=== PATIENT | male | born 1990 | race Hispanic/Latino ===

== ENCOUNTER 2020-06-06 23:05 | Emergency (ER) | payer SELFPAY ==
[2020-06-06 23:22] LABS: #Basophils 0.1 thou/uL (0.0-0.2); #Monocytes 0.6 thou/uL (0.11-0.59); #Neutrophils 12.2 thou/uL (1.40-6.50); %Basophils 0.7 % (0.0-1.0); %Eosinophils 0.1 % (0.0-10.0); %Lymphocytes 13.2 % (21.0-51.0); %Monocytes 3.9 % (0.0-10.0); %Neutrophils 82.1 % (42.0-75.0); Hemoglobin 16.3 g/dL (14.0-18.0); Mean Corpuscular HGB CONC 33.9 g/dL (32.0-36.0); Mean Corpuscular Hemoglobin 31.1 pg (27.0-31.0); Mean Corpuscular Volume 91.6 fL (78.0-98.0); Mean Platelet Volume 8.8 fL (7.4-10.4); Platelet Count 291 thou/uL (130-400); RBC Distribution Width 11.1 % (11.5-14.5); Red Blood Cell (RBC) Count 5.25 mill/uL (4.70-6.10); White Blood Cell (WBC) Count 14.8 thou/uL (4.8-10.8)
--- NOTE | 2020-06-06 23:28 | CT ---
CT of thehead: 06/06/2020 COMPARISON:None available HISTORY:Trauma TECHNIQUE: Serial axial CT imaging at5 mm intervals from vertex through skull base without contrast. Coronal and sagittal reformatted imaging obtained. Findings:Mild mucosal thickening of the alveolar recess left maxillary sinus. No displaced calvarial fracture. No intracranial hemorrhage, midline shift, mass effect, or ventricular enlargement. There is a lesion of CSF density within the middle cranial fossa on the right anterior to the right t emporal lobe measuring 2.7 cm, likely representing an arachnoid cyst. This could be confirmed with a follow-up brain MRI. Impression:No intracranial hemorrhage or displaced calvarial fracture. Findings suggesting a right mi ddle cranial fossa arachnoid cyst. Nonemergent brain MRI suggested.
[2020-06-06 23:38] LABS: AST (SGOT) 21 U/L (5-34); Alcohol 133 mg/dL (Less than 10); Anion Gap 22 mmol/L (10-20); Calc. Creatinine Clearance 0 mL/min (70-130); Estimated GFR-MDRD Greater than 90; Globulin 3.2 g/dL (2.4-3.5); Potassium 3.7 mmol/L (3.5-5.1)
--- NOTE | 2020-06-06 23:38 | CT ---
CT of thecervical spine: 06/06/2020 COMPARISON:None available HISTORY:Trauma, pain TECHNIQUE: Serial axial CT imaging at2.5 mm intervals from theskull base through lung apices without contrast. Coronal and sagittal reformatted imaging obtained Findings:Imaged lung apices are unremarkable. The occipital condyles, the dens, the C1-2 articulation, the craniocervical junction, the atlantoaxia l interspace, and the cervicothoracic junction appear intact. No prevertebral soft tissue swelling. No anterolisthesis or retrolisthesis. Mild disc space narrowing at C4-5. No displaced fracture or dis location. Impression:No acute osseous abnormality.
--- NOTE | 2020-06-06 23:38 | RAD ---
2 view chest: [06/06/2020] Comparison:None available HISTORY: Injury FINDINGS: Heart and mediastinal contours are grossly unremarkable. No pneumothorax or pleural fluid. No focal consolidation or alveolar edema. IMPRESSION: No acute findings.
[2020-06-06 23:44] LABS: ALT (SGPT) 15 U/L (8-55); Albumin 4.2 g/dL (3.5-5.0); Alkaline Phosphatase 84 U/L (40-110); BUN (Urea Nitrogen) 8 mg/dL (8.9-20.6); Bilirubin, Total 0.3 mg/dL (0.2-1.2); Calcium 7.3 mg/dL (7.8-10.44); Carbon Dioxide 18 mmol/L (22-29); Chloride 103 mmol/L (98-107); Glucose 81 mg/dL (70-105); Protein, Total 7.4 g/dL (6.0-8.3); Sodium 139 mmol/L (136-145)
--- NOTE | 2020-06-06 23:54 | CT ---
CT facial bones: 06/06/2020 COMPARISON: None HISTORY: Trauma TECHNIQUE: Axial CT imaging at 2.5 mm intervals through the face with coronal and sagittal reformatte d imaging FINDINGS: The nasal bones, zygomatic arches, and pterygoid plates are intact. There is mild mucosal t hickening involving the alveolar recess of the left maxillary sinus. No mandibular fracture. No evidence for temporomandibular joint dislocation. The orbital floor and medial orbital wall appears intact on the coronal reformatted imaging. There is a prominent dental chelsea involving the posterior left maxillary tooth. IMPRESSION: No acute fracture of the maxillofacial bones.
== END 2020-06-07 00:10 ==
LOC: NAV ERS 23:05
DX: S00.83XA Contusion of other part of head, initial encounter (principal); S20.219A Contusion of unspecified front wall of thorax, initial encounter; V44.5XXA Car driver injured in collision with heavy transport vehicle or bus in traffic accident, initial encounter; Y92.411 Interstate highway as the place of occurrence of the external cause
CPT/HCPCS: 36415; 70450; 70486; 71046; 72125; 80053; 80307; 85025